=== PATIENT | female | born 1950 | race Caucasian/White ===

== ENCOUNTER 2024-04-19 08:03 | Outpatient (REF) | payer OTHER, SELFPAY ==
--- OUTSIDE RECORDS SUMMARY | 2024-04-19 08:06 | XMS_ITS | Encounter Summary ---
Author Organization [employer] Address [address] [facility] [address] [place] [address] Care Team Providers Care Neighborhood Conservation Officer Name Role Phone Attila Han MD Primary Care Prov ider Encounter Details Date Type Department Care Team (Latest Contact Info) Description 04/18/2024 Travel Social History Tobacco Use Types Packs/Day Years Used Date Smoking Tobacco: Never Smokeless Tobacco: Never Alcohol Use Standard Drinks/Week Comments Never 0 (1 standard drink = 0.6 oz pur e alcohol) Depression Answer Date Recorded Patient Health Questionnaire-9 Score 0 04/18/2024 Patient Health Questionnaire-9 Score 0 04/18/2024 Last PHQ-9: Questionnaire Data Not on file 0 04/18/2024 Housing Stability Answer Date Recorded What is your housing situation today? I have frankgordon martin 04/18/[address] you li ve. Do you have problems with any of the following? None of the above 04/18/2024 Food Insecurity Answer Date Recorded Within the past 12 months, y ou worried that your food would run out before you got money to buy more: Never True 04/18/2024 Within the past 12 months,th e food you bought just didn't last and you didn't have enough money to get more: Never True 01/2025 Transportation Answer Date Recorded In the past 12 months, has l ack of transportation kept you from medical appts, meetings, work or from getting things needed for daily living? No 04/18/2024 Utilities Answer Date Recorded In the past 12 months, has t he electric, gas, oil or water company threatened to shut off services in your home? No 04/18/2024 Depression Answer Date Recorded Patient Health Questionnaire-2 Score 0 04/18/2024 Internet Access Answer Date Recorded Internet Access Q1 Yes 04/18/2024 Internet Access Q2 Not on file 04/18/2024 Comments Unknown Sex and Gender Information Value Date Recorded Sex Assigned at Female 01/05/2022 10:25 AM EDT Legal Sex Female 10:25 AM EDT Gender Identity Female 04/18/2024 8:33 AM EST Sexual Orientation Straight 04/18/2024 8: 33 AM EST documented as of this encounter Plan of Treatment Not on file documented as of this encounter Visit Diagnoses Not on filedocumented in this encounter Additional Health Concerns Assessment Noted Time PHQ-9 Depression Total Score: 0 04/18/19 9:13 AM EST documented as of this encounter Care Teams Neighborhood Conservation Officer Relationship Specialty Start Date End Date Attila Han MD [address] [place] [id number] PCP - General Internal Medicine 04/18/24 documented as of this encounter
--- OUTSIDE RECORDS SUMMARY | 2024-04-19 08:06 | XMS_ITS | Encounter Summary ---
Author Organization [employer] Address [address] [facility] [address] [place] [address] Care Team Providers Care Form Maker Name Role Phone Attila Han MD Primary Care Prov ider Encounter Details Date Type Department Care Team (Late st Contact Info) Description 04/18/2024 9:00 AM EST Office Visit [facility]EDS [address] [place], [place] [phone] Attila Han MD [address] [place] [address] Encounter for medical examination to establish care (Primary Dx); Primary hypertension Social History Tobacco Use Types Packs/Day Years Used Date Smoking Tobacco: Never Smokeless Tobacco: Never Tobacco Cessation:Counseling Given: Not Answered Alcohol Use Standard Drinks/Week Comments Never 0 (1 standard drink = 0.6 oz pur e alcohol) Depression Answer Date Recorded Patient Health Questionnaire-9 Score 0 04/18/2024 Patient Health Questionnaire-9 Score 0 04/18/2024 Last PHQ-9: Questionnaire Data Not on file 0 04/18/2024 Housing Stability Answer Date Recorded What is your housing situation today? I have frank martin 04/18/[address] you [...] AM EST documented as of this encounter Last Filed Vital Signs Vital Sign Reading Time Taken Comments Blood Pressure 148/94 04/18/2024 9:10 AM EST Pulse 70 04/18/2024 9:10 AM EST Temperature 36.6 ??C (97.8 ??F) 04/18/2024 9:10 AM ES T Respiratory Rate 20 04/18/2024 9:10 AM EST Oxygen Saturation - - Inhaled Oxygen Concentration - - Weight 89.4 kg (197 lb) 04/18/2024 9:10 AM EST Height 159.4 cm (5' 2.75 ) 04/18/2024 9:10 AM ES T Body Mass Index 35.18 04/18/2024 9:10 AM EST documented in this encounter Progress Notes * Attila Villeda MD - 04/18/2024 9:00 AM EST Subjective Patient ID: Emilie Unger is a 73 y.o. female who presents for No chief complaint on file.. HPI Patient was seen in office to establish medical care Review of Systems Constitutional: Negative for chills, fatigue and fever. Respiratory: Negative for cough and shortness of breath. Cardiovascular: Negative for chest pain and palpitations. Gastrointestinal: Negative for abdominal pain, blood in stool and constipation. Objective Physical Exam Constitutional: Appearance: Normal appearance. Cardiovascular: Rate and Rhythm: Normal rate and regular rhythm. Heart sounds: No murmur heard. Pulmonary: Effort: Pulmonary effort is normal. No respiratory distress. Breath sounds: No stridor. No wheezing or rhonchi. Abdominal: General: Abdomen is flat. There is no distension. Palpations: There is no mass. Tenderness: There is no abdominal tenderness. Hernia: No hernia is present. Musculoskeletal: General: Normal range of motion. Neurological: General: No focal deficit present. Mental Status: She is alert and oriented to person, place, and time. Psychiatric: Mood and Affect: Mood normal. Behavior: Behavior normal. 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;- Pshx: sleeve gastrectomy 2019, endomentrilal ablation >20yrs All:- Meds: vitamin c, vitamin d+k, biotion calcium A0 LMP aprox 15-20 years ago Colonoscopy done on 2019 refers due in 10 years Refused mammogram Primary hypertension Repeated ws 148/94, will start on hydrochlorothiazide, encourage low sodium diet and exercise as tolerated, keep bp log, follow up in 1 month Relevant Orders CBC auto differential Comprehensive Metabolic Panel Lipid Panel, Standard TSH W/Reflex to FT4 Hemoglobin A1c documented in this encounter Miscellaneous Notes * Assessment & Plan Note - Attila Villeda MD - 04/18/2024 9:40 AM ESTAssociated Problem(s): Primary hypertension Repeated ws 148/94, will start on hydrochlorothiazide, encourage low sodium diet and exercise as tolerated, keep bp log, follow up in 1 month * Assessment & Plan Note - Attila Villeda MD - 04/18/2024 9:22 AM ESTAssociated Problem(s): Encounter for medical examination to establish care Last pcp visit in 3 years ER: - 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;- Pshx: sleeve gastrectomy 2019, endomentrilal ablation >20yrs All:- Meds: vitamin c, vitamin d+k, biotion calcium A0 LMP aprox 15-20 years ago Colonoscopy done on 2019 refers due in 10 years Refused mammogram documented in this encounter Plan of Treatment Scheduled Orders Name Type Priority Associated Diagnoses Orde r Schedule CBC auto differential Lab Routine Primary hypertension Expected: 04/18/2024 (Approximate), Expires: 04/18/2025 Comprehensive Metabolic Panel Lab Routine Primary hypertension Expected: 04/18/2024 (Approximate), Expires: 04/18/2025 Lipid Panel, Standard Lab Routine Primary hypertension Expected: 04/18/2024 (Approximate), Expires: 04/18/2025 TSH W/Reflex to FT4 Lab Routine Primary hypertension Expected: 04/18/2024 (Approximate), Expires: 04/18/2025 Hemoglobin A1c Lab Routine Primary hypertension Expected: 04/18/2024 (Approximate), Expires: 04/18/2025 documented as of this encounter Visit Diagnoses Diagnosis Encounter for medical examination to establish care- Primary Primary hypertension Unspecified essential hypertension documented in this encounter Additional Health Concerns Assessment Noted Time PHQ-9 Depression Total Score: 0 04/18/19 9:13 AM EST documented as of this encounter Care Teams Form Maker Relationship Specialty Start Date End Date Attila Han MD [address] [place] [phone] PCP - General Internal Medicine 04/18/24 documented as of this encounter
--- OUTSIDE RECORDS SUMMARY | 2024-04-19 08:06 | XMS_ITS | Encounter Summary ---
Author Organization [employer] Address [address] [facility] [address] [place] [address] Care Team Providers Care Bioinformatician Name Role Phone Unavailable Primary Care Provider Unavailabl e Reason for Visit * Reason Comments Pre-visit Planning SDOH unable to reach LVM Encounter Details Date Type Department Care Team ([facility] st Contact Info) Description 04/11/2024 Patient Outreach [facility] MED & PEDS [address] [place] [address] Attila Han MD [address] [place], [place] [phone] Pre-visit Planning (SDOH unable to reach LVM) Social History Tobacco Use Types Packs/Day Years Used Date Smoking Tobacco: Never Assessed Comments Unknown Sex and Gender Information Value Date Recorded Sex Assigned at Female 01/05/2022 10:25 AM EDT Legal Sex Female 10:25 AM EDT Gender Identity Female 04/18/2024 8:33 AM EST Sexual Orientation Straight 04/18/2024 8: 33 AM EST documented as of this encounter Progress Notes * Lynn Simon - 04/11/2024 3:18 PM EST JOELLE Tracy placed outbound call to patient to complete pre-visit planning. No answer at this time. Patient name and were not confirmed. CC left voicemail requesting return call. Direct contactinformation provided. documented in this encounter Plan of Treatment Not on file documented as of this encounter Visit Diagnoses Not on filedocumented in this encounter
--- OUTSIDE RECORDS SUMMARY | 2024-04-19 08:06 | XMS_ITS | Clinical Summary ---
Author Organization [employer] Address [address] [facility] [address] [place] [address] Care Team Providers Care Supervisor [employer] Name Role Phone Attila Han MD Primary Care Prov ider Allergies No known active allergies Medications hydroCHLOROthiaz kali (HYDRODiuril) 25 MG tablet Take 1 tablet (25 mg) by mouth Once per day. 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;- Pshx: sleeve gastrectomy 2019, endomentrilal ablation >20yrs All:- Meds: vitamin c, vitamin d+k, biotion calcium A0 LMP aprox 15-20 years ago Colonoscopy done on 2019 refers due in 10 years Refused mammogram Primary hypertension 04/18/2024 Assessment & Plan (04/18/2024 9:40 AM EST): Repeated ws 148/94, will start on hydrochlorothiazide, encourage low sodium diet and exercise as tolerated, keep bp log, follow up in 1 month Encounters Date Type Department Care Team Description 04/18/2024 9:00 AM EST Office Visit [facility] [address] [place] [address] Attila Han MD Encounter for medical examination to establish care (Primary Dx); Primary hypertension 04/18/2024 Orders Only [facility] [address] [place] [address] Attila Han MD 04/18/2024 Travel 04/11/2024 Patient Outreach [facility] PEDS [address] [place] [address] Attila Han MD Pre-visit Planning (SDOH unable to reach LVM) from Last 3 Months Family History Medical History Relation Name Comments Heart attack Father Heart disease Father Breast cancer Maternal Grandmother Skin cancer Mother Breast cancer Mother's Sister Colon cancer Sister Relation Name Status Comments Father Maternal Grandmother Mother Mother's Sister Sister Social History Tobacco Use Types Packs/Day Years [...] Orientation Straight 04/18/2024 8: 33 AM EST Last Filed Vital Signs Vital Sign Reading [...] Mass Index 35.18 04/18/2024 9:10 AM EST Plan of Treatment Health Maintenance Due Date Last Done Comments CT Colonography 1950 Colonoscopy 1950 Colorectal Cancer Screening 1950 FIT DNA/Cologuard 1950 FIT 1950 FOBT 1950 Lipid Panel 1950 Sigmoidoscopy 1950 Hepatitis C Screening 11/10/1969 DTaP/Tdap/Td Vaccines (1 - Tdap) 11/10/1970 Pneumococcal Vaccine: 50+ Years (1 of 1 - PCV) 11/10/2001 Zoster Vaccines (1 of 2) 11/10/2001 Mammogram 08/30/2020 08/30/2018 COVID-19 Vaccine ( - 2023-2 5 season) 2023 Influenza Vaccine (#1) 2023 Alcohol/Substance Use Screening 04/18/2025 04/18/2024 Depression Screening 04/18/2025 04/18/2024, 04/18/2024 SDOH Screening 04/18/2025 04/18/2024 Tobacco Screening 04/18/2025 04/18/2024 RSV Patients and Patients Aged 60 years or older (1 - 1-dose 75+ series) 11/10/2026 HIB Vaccines Aged Out No longer eligi ble based on patient's age to complete this topic HPV Vaccines Aged Out No longer eligi ble based on patient's age to complete this topic Hepatitis A Vaccines Aged Out No long er eligible based on patient's age to complete this topic Hepatitis B Vaccines Aged Out No long er eligible based on patient's age to complete this topic IPV Vaccines Aged Out No longer eligi ble based on patient's age to complete this topic Meningococcal Vaccine Aged Out No wesley boni eligible based on patient's age to complete this topic RSV under 20 months Aged Out No longe r eligible based on patient's age to complete this topic Rotavirus Vaccines Aged Out No longer eligible based on patient's age to complete this topic Procedures Procedure Name Priority Date/Time Associated Diagnosis Comments BI MAMMOGRAM SCREENING BILATERAL Routine 08/30/2018 7:36 AM EDT from Last 3 Months or Most Recently Relevant to Health Maintenance Results * 3D DIGITAL NAYA SCR MAMMO 1 (08/30/2018 7:36 AM EDT) Anatomical Region Laterality Modality Breast Bilateral Mammography 08/30/2018 7:36 AM EDT Narrative 08/30/2018 7:41 AM EDT Refer to the Notes tab for result details Legacy Procedure: 3D DIGITAL NAYA SCR MAMMO 1 Procedure Note Provider, MD Armani - 05/30/2022 Refer to the Notes tab for result details Legacy Procedure: 3D DIGITAL NAYA SCR MAMMO 1 Prachi Ace MD IMG BI PROCEDURES Final Res ult from Last 3 Months or Most Recently Relevant to Health Maintenance Insurance [facility] Care Teams Supervisor [employer] Relationship Specialty Start Date End Date Attila Han MD [address] [place] [phone] PCP - General Internal Medicine 04/18/24
--- OUTSIDE RECORDS SUMMARY | 2024-04-19 08:06 | XMS_ITS | Encounter Summary ---
Author Organization [employer] Address [address] [facility] [address]t [place] [address] Care Team Providers Care Patient Safety Manager Name Role Phone Attila Han MD Primary Care Prov ider Encounter Details Date Type Department Care Team (Late st Contact Info) Description 04/18/2024 Orders Only [facility] MED & PEDS [address] [place], [place] [phone] Attila Han MD [address] [place] [address] Social History Tobacco Use Types Packs/Day Years [...] your housing situation today? I have frankgordon matrin 04/18/[address] you li [...] documented as of this encounter Care Teams Patient Safety Manager Relationship Specialty Start Date End Date Attila Han MD [address] [place] [phone] PCP - General Internal Medicine 04/18/24 documented as of this encounter
[2024-04-20 14:26] LABS: MANUAL DIFF FLAG NO
[2024-04-20 14:40] LABS: Basophils Absolute Auto 0.1 X10*3/uL (0.0-0.2); Basophils Percent Auto 1.2 % (0-2); Eosinophils Absolute Auto 0.2 X10*3/uL (0.0-0.4); Eosinophils Percent Auto 2.9 % (0-4); Hemoglobin 16.1 g/dl (12.0-16.0); Imm Gran Abs Auto 0.05 X10*3/uL (0.00-0.03); Imm Gran Pct Auto 0.9 % (0.0-0.4); Lymphocytes Absolute Auto 1.9 X10*3/uL (1.2-4.9); Lymphocytes Percent Auto 33.1 % (20-40); Mean Corpuscular HGB Conc 33.5 g/dl (31.0-35.0); Mean Corpuscular Hemoglobin 31.1 pg (27.0-33.0); Mean Corpuscular Volume 92.8 fL (80.0-98.0); Mean Platelet Volume 11.1 fL (9.4-12.3); Monocytes Absolute Auto 0.4 X10*3/uL (0.1-1.2); Monocytes Percent Auto 6.5 % (2-11); Neutrophils Absolute Auto 3.3 x10*3/uL (2.0-8.3); Neutrophils Percent Auto 55.4 % (45-73); Platelet Count 269 X10*3/uL (160-400); Red Blood Count 5.17 X10*6/uL (4.20-5.50); Red Cell Distribution Width 13.4 % (11.0-16.0); White Blood Count 5.9 X10*3/uL (4.8-10.8)
[2024-04-20 14:42] LABS: Estimated Average Glucose 97 mg/dL; Hemoglobin A1C 125.8376 umol/L; Total Hemoglobin (HGBA1C) 4107.8742 umol/L
[2024-04-20 15:02] LABS: Alanine Aminotransferase 19 U/L (0-31); Alkaline Phosphatase 84 U/L (39-117); Anion Gap 12 (12-20); Aspartate Amino Transferase 20 U/L (5-31); Bilirubin Total 0.8 mg/dL (0.0-1.0); Blood Urea Nitrogen 18 mg/dL (9-16); Calcium 9.7 mg/dL (8.4-10.2); Carbon Dioxide 27 mmol/L (22-29); Chloride 109 mmol/L (96-108); Cholesterol 268 mg/dL (<200); Estimated Glomerular Filt Rate > 60; Glucose Random 84 mg/dL (60-115); HDL Cholesterol 70 mg/dL (>40); LDL Cholesterol Calculated 183 mg/dL (<100); Potassium 4.7 mmol/L (3.3-5.1); Sodium 143 mmol/L (135-145); Total Protein 6.9 g/dL (6.5-8.0); Triglycerides 78 mg/dL (<150)
[2024-04-20 15:16] LABS: TSH reflex Free T4 1.08 uIU/mL (0.32-4.0)
== END 2024-04-19 08:04 | disposition home or self-care (01) ==
LOC: HO.CHCLDS 08:03
PROVIDERS: Visit Provider Internal Medicine
DX: I10 Essential (primary) hypertension (principal); Z13.1 Encounter for screening for diabetes mellitus
CPT/HCPCS: 36415; 80053; 80061; 83036; 84443; 85025